=== PATIENT | male | born 1980 | race Caucasian/White ===

== ENCOUNTER 2024-11-28 08:30 | Day surgery (SDC) | payer MEDICAID ==
[~2024-11-28] VITALS: Ht 180.3 cm; Wt 108.3 kg
[2024-11-28] VITALS (14 sets, daily range): BP systolic 113–149; BP diastolic 76–93; PULSE 82–107; RESP 12–24; TEMP 98.3; O2SAT 96–99
[~2024-11-28 08:30] MED LIST: EPIN0.3A3
[2024-11-28] MEDS ORDERED: MIDAZolam 1 MG/ML 5ML VIAL ONE ×2 (09:22→09:28)
[2024-11-28] MEDS ORDERED: fentaNYL/PF 50MCG/1 ML 2ML syringe ONE (09:22)
[2024-11-28] MEDS ORDERED: LIDOcaine 2% Viscous 15ml cup ONE (09:34)
== END 2024-11-28 10:25 | disposition home or self-care (01) ==
LOC: GI LAB 08:30
PROVIDERS: ATTEND Internal Medicine Gastroenterology
DX: Z12.11 Encounter for screening for malignant neoplasm of colon (principal)
CPT/HCPCS: 45378; 82948; 99152; J2250; J3010; J7030; J7040; Z7512; 99153; A4620